=== PATIENT | female | born 1980 | race Caucasian/White ===

== ENCOUNTER 2018-11-10 14:05 | Inpatient (IN) | payer MEDICAID ==
[~2018-11-10] VITALS: Ht 165.1 cm; Wt 61.7 kg
[2018-11-10] MEDS ORDERED: DIAZ5TAB4 PO (14:26)
[2018-11-10] MEDS ORDERED: NATA300V2 IV (14:26)
[2018-11-10] MEDS ORDERED: DEXT30TA10 PO (14:26)
[2018-11-10 16:00] VITALS: BP 137/69
[2018-11-10] MEDS ORDERED: HYDROCODONE/APAP 5/325MG 1 EACH TABLET PO PRN (16:00)
[2018-11-10] MEDS ORDERED: ACETAMINOPHEN 325 MG TABLET PO PRN (16:00)
[2018-11-10] MEDS ORDERED: ZOLPIDEM TARTRATE 5 MG TABLET PO PRN (16:00)
[2018-11-10] MEDS ORDERED: DIAZEPAM 5 MG TABLET PO PRN (16:00)
[2018-11-10] MEDS ORDERED: MAGNESIUM HYDROXIDE 30 ML UDC PO PRN (16:00)
[2018-11-10] MEDS ORDERED: Medication Not On Formulary EA (Amphet Asp/Amphet/D-Amphet (Amphetamine Salts 30 Mg Tab) PO PRN (16:00)
[2018-11-10] MEDS ORDERED: Z GUARD REMEDY 2 OZ OINT TP PRN (16:00)
[2018-11-10] MEDS ORDERED: ONDANSETRON HCL/PF 4 MG/2 ML VIAL IVP PRN (16:00)
[2018-11-10] MEDS ORDERED: MAG HYDROX/AL HYDROX/SIMETH 30 ML UDC PO PRN (16:00)
--- NOTE | 2018-11-10 16:08 | NUR ---
RECEIVED PT A DIRECT ADMIT CAME ONTO UNIT AT 1500. PT DENIES ANY PAIN OR SOB. PT WAS ABLE TO AMBULATE TO BATHROOM WITH ASSISTANCE AND WALKER. PT STATES SHE FEELS VERY WEAK AND SHAKY. PT STATES AT CERTAIN TIME SHE HAS DOUBLE VISION. PT TOOK OFF HOSPITAL GOWN AND PUT ON HER REGULAR CLOTHES. PT HAS A RIGHT AC 20 GAUGE THAT IS CURRENTLY SALINE LOCKED. PT IS MEDSURG STATUS. WILL CONTINUE TO MONITOR.
[2018-11-10] MEDS ORDERED: methylPREDNISolone SOD SUCC 125 MG/2ML VIAL IV SCH (17:00)
--- NOTE | 2018-11-10 18:51 | NUR ---
RN CLOSING NOTES PT IS SITTING IN BED TALKING ON HER PERSONAL CELLPHONE. PT DENIES ANY SOB OR PAIN AT PRESENT MOMENT AND STATES SHE IS FINE. BED IS LOCKED AND IN LOWEST POSITION WITH CALL LIGHT IN REACH WILL ENDORSE CONTINUATION OF CARE TO [facility] [employer] RN.
--- NOTE | 2018-11-10 19:12 | NUR ---
PT HAS MONEY AND STATED SHE DOES NOT WANT HER MONEY PLACED IN THE SAFE WISHES FOR IT TO BE WITH HER.
--- NOTE | 2018-11-10 19:21 | NUR ---
SPOKE WITH PT ABOUT HOME MEDICATION STATES SHE WILL HAVE BRING MEDICATION FROM HOME.
[2018-11-10 20:00] VITALS: BP 133/73
--- NOTE | 2018-11-10 20:00 | NUR ---
pt received in bed alert, oriented, c/o right leg having mild spasm , pt requesting some meds and offered valium, pt refused, pt stated she has that at home and doesn't work well. remains in bed, resting . able to move arms and legs good strength. will continue to monitor, vss,afebrile.
--- NOTE | 2018-11-10 22:00 | NUR ---
PT stated that she wanted to go home AMA, pt stated her MS is not getting better and she has appt to the doctor on monday. called Dr. Landry and made aware and pt signed AMA. came with a scooter and wheeled the pt out. iv line removed by pt, belongings sent home.
== END 2018-11-10 22:10 | disposition left against medical advice (07) | DRG 43 ==
LOC: TELE 14:05 → MED 16:24
PROVIDERS: ADMIT Family Medicine; ATTEND Family Medicine
DX: G35 Multiple sclerosis (principal); F90.9 Attention-deficit hyperactivity disorder, unspecified type; Z66 Do not resuscitate; Z87.891 Personal history of nicotine dependence
CPT/HCPCS: G0378; J2930